=== PATIENT | male | born 1960 | race Caucasian/White ===

== ENCOUNTER 2021-11-10 16:54 | Emergency (ER) | payer BC ==
[2021-11-10] MEDS ORDERED: Sodium Chloride 0.9% 10 ML Syringe FLUSH PRN (17:10)
[2021-11-10] MEDS ORDERED: Meclizine 25 MG Tab PO ONE (17:10)
[2021-11-10] MEDS ORDERED: Sodium Chloride 0.9% 1,000 ML IV ONE (17:10)
[2021-11-10] MEDS ORDERED: Sodium Chloride 0.9% 2.5 ML Syringe FLUSH PRN (17:10)
[2021-11-10] MEDS ORDERED: Lisinopril 10 MG Tab PO ONE (17:13)
[2021-11-10 18:04] LABS: BLOOD UREA NITROGEN,BUN 19 mg/dL (7.0-18.0); CARBON DIOXIDE,CO2 30.1 mmol/L (21.0-32.0); CHLORIDE,CL 102 mmol/L (98-107); GLUCOSE RANDOM 154 mg/dL (74-106); POTASSIUM,K 3.6 mmol/L (3.5-5.1); SODIUM,NA 141 mmol/L (136-148)
[2021-11-10] MEDS ORDERED: Iopamidol 755 MG/ML 500 ML Multipack Bottle IVPUSH ONE (19:12)
== END 2021-11-10 20:08 | disposition home or self-care (01) ==
LOC: MW.ED 16:54
DX: H81.10 Benign paroxysmal vertigo, unspecified ear (principal); I10 Essential (primary) hypertension; I25.10 Atherosclerotic heart disease of native coronary artery without angina pectoris
CPT/HCPCS: 36415; 70450; 70496; 70498; 80053; 81001; 83735; 84443; 84484; 85025; 96360; 99284; A9270; J3490; J7030; Q9967; 93010

== ENCOUNTER 2023-12-16 13:16 | Emergency (ER) | payer BC | END 2023-12-16 13:59 | disposition left against medical advice (07) | LOC: MW.ED 13:16 | DX: Z53.21 Procedure and treatment not carried out due to patient leaving prior to being seen by health care provider (principal) ==